=== PATIENT | female | born 1950 | race Caucasian/White ===

== ENCOUNTER → 2024-04-25 | Outpatient (CLI) | payer MEDICARE ==
--- NOTE | 2024-04-25 12:01 | XR ---
EXAMINATION TYPE: XR knee limited RT DATE OF EXAM: 04/25/2024 11:22 AM COMPARISON: None CLINICAL INDICATION: Female, 73 years old with history of M25.561 R knee pain; PHH, pain TECHNIQUE: XR knee limited RT 2 views submitted. FINDINGS: No evidence of any acute osseous pathology, soft tissue swelling, or joint effusion is no gustavo. Tricompartmental osteophyte formation involving the femoral condyles, tibial plateau and patella . Mild joint space narrowing. Atherosclerosis of the arterial vasculature. IMPRESSION: 1. No acute osseous pathology. 2. 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 [facility], , 04/25/2024 11:58 AM
== END | disposition home or self-care (01) ==
LOC: RADXRMAIN 10:55
PROVIDERS: ATTEND Internal Medicine Geriatric Medicine
DX: M17.11 Unilateral primary osteoarthritis, right knee (principal)

== ENCOUNTER 2024-07-16 09:21 | Inpatient (IN) | payer MEDICARE, OTHER ==
[2024-07-16] MEDS: IPRATROPIUM-ALBUTEROL 3 ML NEB INHALATION STA (09:34)
--- NOTE | 2024-07-16 09:34 | ED ---
General Adult HPI - General Chief complaint: Shortness of Breath Stated complaint: Flu A Time Seen by Provider: 07/16/24 09:21 Source: patient, EMS, RN notes reviewed, old records reviewed Mode of arrival: EMS Limitations: no limitations - History of Present Illness Initial comments: This is a 74-year-old female who comes from a [facility] complaining of difficulty breathing. According to EMS she was diagnosed with influenza approximately a week ago. Patient per EMS had a pulse ox in the 40s when they arrived and her blood pressure was low according to staff there. Patient also had occasional complaint of abdominal pain but she states currently she does not have any abdominal pain. Patient denies any fever and there is no history of any chest pain the patient denies chest pain. Patient has a past history of COPD and is a full code. - Related Data Home Medications Medication Instructions Recorded Confirmed Apixaban [Eliquis] 5 mg PO BID 06/25/24 06/26/24 Esomeprazole Magnesium [NexIUM] 40 mg PO DAILY 06/25/24 06/26/24 Fexofenadine HCl [Tali Allergy] 180 mg PO DAILY 06/25/24 06/26/24 Fluticasone/Umeclidin/Vilanter 1 puff INHALATION RT-DAILY 06/25/24 06/26/24 [Trelegy Ellipta 200-62.5-25] Hydroxychloroquine Sulfate 200 mg PO BID 06/25/24 06/26/24 Pregabalin [Lyrica] 100 mg PO TID 06/25/24 06/26/24 Albuterol Sulfate [Albuterol 2 puff INHALATION RT-QID PRN 06/26/24 06/26/24 Sulfate Hfa] Calcium Carbonate [Calcium] 600 mg PO BID 06/26/24 06/26/24 Montelukast [Singulair] 10 mg PO DAILY 06/26/24 06/26/24 Tirzepatide [Mounjaro] 12.5 mg SQ MO 06/26/24 06/26/24 Previous Rx's Medication Instructions Recorded Atorvastatin [Lipitor] 40 mg PO HS #30 tab 07/04/24 Bumetanide [BUMEX] 1 mg PO DAILY #30 tab 07/04/24 HYDROcodone/APAP 10-325MG [[place] 1 each PO Q6H PRN #28 tab 07/04/24 10] Hydrocortisone [Cortef] 10 mg PO DAILY@1600 #9 tab 07/04/24 Hydrocortisone [Cortef] 15 mg PO DAILY@0700 9 Days tab 07/04/24 Insulin Aspart [NovoLOG Flexpen] 1 - 10 units SQ AC-TID #5 pen 07/04/24 Insulin Degludec [Tresiba 20 units SQ HS #5 pen 07/04/24 Flextouch U-200 Pen] Metoprolol Succinate (ER) [Toprol 12.5 mg PO DAILY #30 tab 07/04/24 XL] Allergies Allergy/AdvReac Type Severity Reaction Status Date / Time ciprofloxacin Allergy Unknown Verified 06/30/24 14:30 codeine Allergy Rash/Hives Verified 06/30/24 14:30 folic acid Allergy Unknown Verified 06/30/24 14:30 metronidazole [From Flagyl] Allergy Swelling Verified 06/30/24 14:30 propoxyphene Allergy Unknown Verified 06/30/24 14:30 [From Darvocet-N 100] Sulfa (Sulfonamide Allergy Unknown Verified 06/30/24 14:30 Antibiotics) sulfamethoxazole Allergy Unknown Verified 06/30/24 14:30 [From Bactrim] terbinafine [From Lamisil] Allergy Unknown Verified 06/30/24 14:30 trimethoprim [From Bactrim] Allergy Unknown Verified 06/30/24 14:30 Review of Systems ROS Statement: Those systems with pertinent positive or pertinent negative responses have been documented in the HPI. ROS Other: All systems not noted in ROS Statement are negative. Past Medical History Past Medical History: Atrial Fibrillation, Cancer, COPD, Diabetes Mellitus, Hyperlipidemia, Hypertension Additional Past Medical History / Comment(s): PULMONARY FIBROSIS, SJOGREN'S SYNDROME, BREAST CANCER X2, CERVICAL CANCER, VAGINAL WALL CANCER, FACIAL CANCER History of Any Multi-Drug Resistant Organisms: None Reported Past Surgical History: Appendectomy, Breast Surgery, Cholecystectomy, Heart Catheterization, Hysterectomy Additional Past Surgical History / Comment(s): BREAST MASTECTOMY 2000 & 2008, EYE SURGERY 2004 Type of Cardiac Device: Permanent Pacemaker Device Placement Date:: February 2021 Past Psychological History: No Psychological Hx Reported Smoking Status: Never smoker Past Alcohol Use History: None Reported Past Drug Use History: None Reported - Past Family History Father Family Medical History: Cancer Additional Family Medical History / Comment(s): lung cancer Brother(s) Family Medical History: Cancer Additional Family Medical History / Comment(s): leukemia Mother Family Medical History: Coronary Artery Disease (CAD), CVA/TIA, Hypertension General Exam - General Exam Comments Initial Comments: GENERAL: Patient is well-developed and well-nourished. Patient is nontoxic and well- hydrated and is in moderate distress. ENT: Neck is soft and supple. No significant lymphadenopathy is noted. Oropharynx is clear. Moist mucous membranes. Neck has full range of motion without eliciting any pain. EYES: The sclera were anicteric and conjunctiva were pink and moist. Extraocular movements were intact and pupils were equal round and reactive to light. Eyelids were unremarkable. PULMONARY: Patient has crackles in the bases of her lungs CARDIOVASCULAR: There is a regular rate and rhythm without any murmurs gallops or rubs. ABDOMEN: Soft and nontender with normal bowel sounds. SKIN: Skin is clear with no lesions or rashes and otherwise unremarkable. NEUROLOGIC: Patient is alert and oriented x3. Cranial nerves II through XII are grossly intact. Motor and sensory are also intact. Normal speech, volume and content. Symmetrical smile. MUSCULOSKELETAL: Normal extremities with adequate strength and full range of motion. No lower extremity swelling or edema. No calf tenderness. LYMPHATICS: No significant lymphadenopathy is noted PSYCHIATRIC: Normal psychiatric evaluation. Limitations: no limitations Course Vital Signs 07/16/24 07/16/24 07/16/24 09:22 09:34 09:37 Temperature 98.5 F Pulse Rate 101 H 72 Respiratory 32 H 32 H Rate Blood Pressure 86/60 O2 Sat by Pulse 97 Oximetry Fraction of 50 Inspired Oxygen (FIO2) 07/16/24 07/16/24 07/16/24 09:41 09:44 10:00 Temperature Pulse Rate 73 71 Respiratory 24 Rate Blood Pressure 86/40 O2 Sat by Pulse 99 Oximetry Fraction of 50 70 Inspired Oxygen (FIO2) 07/16/24 07/16/24 07/16/24 10:17 10:54 11:22 Temperature Pulse Rate 70 66 72 Respiratory 28 H 26 H 30 H Rate Blood Pressure 90/39 83/38 98/61 O2 Sat by Pulse 96 97 96 Oximetry Fraction of Inspired Oxygen (FIO2) 07/16/24 07/16/24 12:07 12:11 Temperature Pulse Rate 67 Respiratory 26 H Rate Blood Pressure 83/11 O2 Sat by Pulse 95 Oximetry Fraction of 50 Inspired Oxygen (FIO2) Procedures - Central Line Placement Right Femoral Consent Obtained: verbal consent Patient Placed on Monitor/Pulse Ox: Yes MD Prep: mask, gown, gloves Central Line Prep: Chlorhexidine scrub Local Anesthesia Used: Lidocaine 1% Ultrasound Used for Placement: Yes Central Line Lumen Inserted: triple Bloods Obtained for Lab: No Central Line Position: good blood return, all ports aspirated, flushed, capped, sutured in place with nylon Dressing Applied: Tegaderm Patient Tolerated Procedure: well Complications: none - Sepsis Sepsis Focused Exam #1 Time Sepsis Criteria Met: 12:05 Sepsis Focused Exam Date: 07/16/24 Sepsis Focused Exam Time: 13:45 Sepsis Focused Exam Complete: Yes Vital Signs & RN Notes Reviewed: Yes Capillary Refill: < 2 Seconds: Fingers Peripheral Pulses: Weak: Radial (R) Skin Color: Normal for Patient Respiratory Exam: rales Cardiovascular Exam: regular rate Medical Decision Making - Medical Decision Making Patient's ideal body weight is 59 kg EKG is interpreted by myself EKG shows electronically paced rhythm at 74 bpm [place] 183 QRS is 188 QT is 499 QTc is 526. Was pt. sent in by a medical professional or institution ([facility], [facility], urgent care, hospital, or fci...) When possible be specific @ -No Did you speak to anyone other than the patient for history (EMS, parent, family, police, friend...)? What history was obtained from this source @ -No Did you review nursing and triage notes (agree or disagree)? Why? @ -I reviewed and agree with nursing and triage notes Were old charts reviewed (outside hosp., previous admission, EMS record, old EKG, old radiological studies, urgent care reports/EKG's, fci records)? Report findings @ -No old charts were reviewed Differential Diagnosis? @ -Differential Dyspnea: Coronary syndrome, arrhythmia, tamponade, asthma, COPD, pulmonary embolism, pneumonia, pneumothorax, pulmonary effusion, anaphylaxis, diabetic ketoacidosis, flailed chest, pulmonary contusion, diaphragmatic rupture, anemia, neuromuscular, this is not meant to be an all-inclusive list. EKG interpreted by me (3pts min.). @ -As above X-rays interpreted by me (1pt min.). @ -X-ray shows bilateral lateral pneumonia CT interpreted by me (1pt min.). @ -CAT scan shows no pulmonary embolism but is consistent with pneumonia U/S interpreted by me (1pt. min.). @ -None done What testing was considered but not performed or refused? (CT, X-rays, U/S, labs)? Why? @ -None What meds were considered but not given or refused? Why? @ -None Did you discuss the management of the patient with other professionals (pr ofessionals i.e. , PA, [facility], lab, RT, psych nurse, social work coordinator, green end department supervisor, teacher, benefits officer, nurse case manager)? Give summary @ -I spoke with Dr. Hernández he agreed to accept the patient to the ICU. I spoke with Dr. Pollock and she agreed to accept the admission Was smoking cessation discussed for >3mins.? @ -No Was critical care preformed (if so, how long)? @ -35 minutes Were there social determinants of health that impacted care today? How? (Homelessness, low income, unemployed, alcoholism, drug addiction, transportation, low edu. Level, literacy, decrease access to med. care, care home, rehab)? @ -No Was there de-escalation of care discussed even if they declined (Discuss DNR or withdrawal of care, Hospice)? DNR status @ -No What co-morbidities impacted this encounter? (DM, HTN, Smoking, COPD, CAD, Cancer, CVA, ARF, Chemo, Hep., AIDS, mental health diagnosis, sleep apnea, morbid obesity)? @ -None Was patient admitted / discharged? Hospital course, mention meds given and route, prescriptions, significant lab abnormalities, going to OR and other pertinent info. @ -Patient came in on BiPAP was much more alert according to EMS. Patient had an x-ray to look like pneumonia so I started the patient on Rocephin and later on vancomycin. Patient was given 2 and half liters of fluid and blood pressure remained low so patient had a central line placed by myself and I put the patient on Levophed. Patient had Zofran and Ativan because she was somewhat nauseous and anxious. Patient was eventually removed off of BiPAP and placed on 4 L nasal cannula. Undiagnosed new problem with uncertain prognosis? @ -No Drug Therapy requiring intensive monitoring for toxicity (Heparin, Nitro, Insulin, Cardizem)? @ -No Were any procedures done? @ -No Diagnosis/symptom? @ -Bilateral pneumonia Acute, or Chronic, or Acute on Chronic? @ -Acute Uncomplicated (without systemic symptoms) or Complicated (systemic symptoms)? @ -Complicate Side effects of treatment? @ -No Exacerbation, Progression, or Severe Exacerbation? @ -No Poses a threat to life or bodily function? How? (Chest pain, [place], [place], pneumonia, PE, COPD, DKA, ARF, appy, cholecystitis, CVA, Diverticulitis, Homicidal, Suicidal, threat to staff... and all critical care pts) @ -Yes this can lead to sepsis and endorgan dysfunction Diagnosis/symptom? @ -Sepsis Acute, or Chronic, or Acute on Chronic? @ -Acute Uncomplicated (without systemic symptoms) or Complicated (systemic symptoms)? @ -Complicated Side effects of treatment? @ -None Exacerbation, Progression, or Severe Exacerbation] @ -No Poses a threat to life or bodily function? @ -Yes this can lead to endorgan dysfunction Diagnosis/symptom? @ -Acute renal failure Acute, or Chronic, or Acute on Chronic? @ -Acute Uncomplicated (without systemic symptoms) or Complicated (systemic symptoms)? @ -Complicate Side effects of treatment? @ -None Exacerbation, Progression, or Severe Exacerbation] @ -No Poses a threat to life or bodily function? @ -Yes this can lead to electrolyte abnormalities and arrhythmias Diagnosis/symptom? @ -Shock liver Acute, or Chronic, or Acute on Chronic? @ -Acute Uncomplicated (without systemic symptoms) or Complicated (systemic symptoms)? @ -Complicated Side effects of treatment? @ -None Exacerbation, Progression, or Severe Exacerbation] @ -No Poses a threat to life or bodily function? @ -Yes this can lead to coagulopathies and bleeding. - Lab Data Result diagrams: 07/16/24 09:32 07/16/24 12:04 Lab Results 07/16/24 07/16/24 07/16/24 Range/Units 09:32 09:32 09:32 WBC 17.7 H (3.8-10.6) k/uL RBC 3.37 L (3.80-5.40) m/uL Hgb 8.6 L (11.4-16.0) gm/dL Hct 29.8 L (34.0-46.0) % MCV 88.3 (80.0-100.0) fL MCH 25.4 (25.0-35.0) pg MCHC 28.7 L (31.0-37.0) g/dL RDW 15.8 H (11.5-15.5) % Plt Count 280 (150-450) k/uL MPV 11.1 Neutrophils % 91 % Lymphocytes % 3 % Monocytes % 5 % Eosinophils % 0 % Basophils % 0 % Neutrophils # 16.1 H (1.3-7.7) k/uL Lymphocytes # 0.5 L (1.0-4.8) k/uL Monocytes # 0.9 (0-1.0) k/uL Eosinophils # 0.0 (0-0.7) k/uL Basophils # 0.0 (0-0.2) k/uL Hypochromasia Marked Poikilocytosis Slight PT 37.1 H (10.0-12.5) sec INR 3.8 H (<1.2) APTT 29.8 (22.0-30.0) sec VBG pH (7.31-7.41) VBG pCO2 (37-51) mmHg VBG HCO3 (24-28) mmol/L Sodium 136 L (137-145) mmol/L Potassium 6.1 H* (3.5-5.1) mmol/L Chloride 99 (98-107) mmol/L Carbon Dioxide 15 L (22-30) mmol/L Anion Gap 22 mmol/L BUN 91 H (7-17) mg/dL Creatinine 2.74 H (0.52-1.04) mg/dL Est GFR (CKD-EPI)AfAm 19 (>60 ml/min/1.73 sqM) Est GFR (CKD-EPI)NonAf 16 (>60 ml/min/1.73 sqM) Glucose 98 (74-99) mg/dL Lactic Ac Sepsis Rflx Plasma Lactic Acid Thomas (0.7-2.0) mmol/L Calcium 8.2 L (8.4-10.2) mg/dL Total Bilirubin 2.4 H (0.2-1.3) mg/dL AST 62580 H (14-36) U/L ALT 5148 H (4-34) U/L Alkaline Phosphatase 171 H (38-126) U/L Total Protein 5.6 L (6.3-8.2) g/dL Albumin 2.9 L (3.5-5.0) g/dL 07/16/24 07/16/24 07/16/24 Range/Units 09:32 09:35 11:08 WBC (3.8-10.6) k/uL RBC (3.80-5.40) m/uL Hgb (11.4-16.0) gm/dL Hct (34.0-46.0) % MCV (80.0-100.0) fL MCH (25.0-35.0) pg MCHC (31.0-37.0) g/dL RDW (11.5-15.5) % Plt Count (150-450) k/uL MPV Neutrophils % % Lymphocytes % % Monocytes % % Eosinophils % % Basophils % % Neutrophils # (1.3-7.7) k/uL Lymphocytes # (1.0-4.8) k/uL Monocytes # (0-1.0) k/uL Eosinophils # (0-0.7) k/uL Basophils # (0-0.2) k/uL Hypochromasia Poikilocytosis PT (10.0-12.5) sec INR (<1.2) APTT (22.0-30.0) sec VBG pH 7.35 (7.31-7.41) VBG pCO2 33 L (37-51) mmHg VBG HCO3 18 L (24-28) mmol/L Sodium (137-145) mmol/L Potassium (3.5-5.1) mmol/L Chloride (98-107) mmol/L Carbon Dioxide (22-30) mmol/L Anion Gap mmol/L BUN (7-17) mg/dL Creatinine (0.52-1.04) mg/dL Est GFR (CKD-EPI)AfAm (>60 ml/min/1.73 sqM) Est GFR (CKD-EPI)NonAf (>60 ml/min/1.73 sqM) Glucose (74-99) mg/dL Lactic Ac Sepsis Rflx Y Plasma Lactic Acid Thomas 8.2 H* (0.7-2.0) mmol/L Calcium (8.4-10.2) mg/dL Total Bilirubin (0.2-1.3) mg/dL AST (14-36) U/L ALT (4-34) U/L Alkaline Phosphatase (38-126) U/L Total Protein (6.3-8.2) g/dL Albumin (3.5-5.0) g/dL 07/16/24 Range/Units 12:04 WBC (3.8-10.6) k/uL RBC (3.80-5.40) m/uL Hgb (11.4-16.0) gm/dL Hct (34.0-46.0) % MCV (80.0-100.0) fL MCH (25.0-35.0) pg MCHC (31.0-37.0) g/dL RDW (11.5-15.5) % Plt Count (150-450) k/uL MPV Neutrophils % % Lymphocytes % % Monocytes % % Eosinophils % % Basophils % % Neutrophils # (1.3-7.7) k/uL Lymphocytes # (1.0-4.8) k/uL Monocytes # (0-1.0) k/uL Eosinophils # (0-0.7) k/uL Basophils # (0-0.2) k/uL Hypochromasia Poikilocytosis PT (10.0-12.5) sec INR (<1.2) APTT (22.0-30.0) sec VBG pH (7.31-7.41) VBG pCO2 (37-51) mmHg VBG HCO3 (24-28) mmol/L Sodium (137-145) mmol/L Potassium 5.7 H (3.5-5.1) mmol/L Chloride (98-107) mmol/L Carbon Dioxide (22-30) mmol/L Anion Gap mmol/L BUN (7-17) mg/dL Creatinine (0.52-1.04) mg/dL Est GFR (CKD-EPI)AfAm (>60 ml/min/1.73 sqM) Est GFR (CKD-EPI)NonAf (>60 ml/min/1.73 sqM) Glucose (74-99) mg/dL Lactic Ac Sepsis Rflx Plasma Lactic Acid Thomas (0.7-2.0) mmol/L Calcium (8.4-10.2) mg/dL Total Bilirubin (0.2-1.3) mg/dL AST (14-36) U/L ALT (4-34) U/L Alkaline Phosphatase (38-126) U/L Total Protein (6.3-8.2) g/dL Albumin (3.5-5.0) g/dL Disposition Clinical Impression: Bilateral pneumonia, Acute renal failure, Shock liver, Sepsis, Influenza Disposition: ADMITTED IP TO THIS HOSP Referrals: Mali Juárez MD [Primary Care Provider] - 1-2 days Time of Disposition: 13:46
[2024-07-16] MEDS: SODIUM CHLORIDE 0.9% 500 ML 500 ML IV SCH (09:56)
[2024-07-16] MEDS: methylPREDNISolone SOD SUCCI 125 MG/2 ML VIAL IV STA (09:56)
[2024-07-16 10:03] LABS: VBG PH 7.35 (7.31-7.41)
--- NOTE | 2024-07-16 10:08 | XR ---
EXAMINATION TYPE: XR chest 1V portable DATE OF EXAM: 07/16/2024 9:59 AM COMPARISON: Chest radiographs from 07/02/2024 TECHNIQUE: XR chest 1V portable Portable AP radiograph of the chest. CLINICAL INDICATION:Female, 74 years old with history of chf; FINDINGS: Lungs/Pleura: There is no evidence of pleural effusion or pneumothorax. Right midlung linear atelect asis. Left basilar subtle patchy airspace opacity. Chronic interstitial prominence. Heart/mediastinum: Cardiomediastinal silhouette is enlarged and stable. Atherosclerotic calcificatio ns are seen in the aorta. Two lead cardiac conduction device overlying the right hemithorax with lead tips projecting over the right ventricle and right atrium. Musculoskeletal: No acute osseous pathology. Other: Surgical clips overlie the left upper chest. IMPRESSION: 1. Right mid lung linear atelectasis with left basilar airspace opacities which may represent atelec tasis versus pneumonia. 2. Cardiomegaly without pulmonary vascular congestion or pleural effusion. [facility], , 07/16/2024 10:05 AM
[2024-07-16 10:10] LABS: Basophils % (A) 0 %; Eosinophils % (A) 0 %; HCT 29.8 % (34.0-46.0); HGB 8.6 gm/dL (11.4-16.0); Hypochromasia Marked; Lymphocytes # (A) 0.5 k/uL (1.0-4.8); Lymphocytes % (A) 3 %; MCH 25.4 pg (25.0-35.0); MCHC 28.7 g/dL (31.0-37.0); MCV 88.3 fL (80.0-100.0); Mean Platelet Volume 11.1; Monocytes # (A) 0.9 k/uL (0-1.0); Monocytes % (A) 5 %; Neutrophils # (A) 16.1 k/uL (1.3-7.7); Neutrophils % (A) 91 %; Platelet Count 280 k/uL (150-450); Poikilocytosis Slight; RBC 3.37 m/uL (3.80-5.40); RDW 15.8 % (11.5-15.5); WBC 17.7 k/uL (3.8-10.6)
[2024-07-16 10:13] LABS: INR 3.8 (<1.2); Partial Thromboplastin Time 29.8 sec (22.0-30.0); Prothrombin Time 37.1 sec (10.0-12.5)
[2024-07-16] MEDS: cefTRIAXone IN SWFI 1,000 MG/10 ML SYRINGE IVP STA (10:13)
[2024-07-16 11:18] LABS: Albumin 2.9 g/dL (3.5-5.0); Alkaline Phosphatase 171 U/L (38-126); Anion Gap 22 mmol/L; Blood Urea Nitrogen 91 mg/dL (7-17); Calcium 8.2 mg/dL (8.4-10.2); Carbon Dioxide 15 mmol/L (22-30); Chloride 99 mmol/L (98-107); Glucose 98 mg/dL (74-99); Sodium 136 mmol/L (137-145); Total Bilirubin 2.4 mg/dL (0.2-1.3); Total Protein 5.6 g/dL (6.3-8.2)
[2024-07-16 11:24] LABS: African American GFR (CKD) 19 (>60 ml/min/1.73 sqM); Non-African American GFR(CKD) 16 (>60 ml/min/1.73 sqM)
[2024-07-16 11:29] LABS: Potassium 6.1 mmol/L (3.5-5.1)
[2024-07-16] MEDS: SODIUM CHLORIDE 0.9% 500 ML 500 ML IV ONE ×3 (12:01→17:22)
[2024-07-16 12:07] LABS: ALT 5148 U/L (4-34)
--- NOTE | 2024-07-16 12:11 | CT ---
EXAMINATION TYPE: CT chest wo con CT DLP: 760 mGycm, Automated exposure control for dose reduction was used. DATE OF EXAM: 07/16/2024 12:02 PM COMPARISON: Chest radiograph from same day. CLINICAL INDICATION:Female, 74 years old with history of Dyspnea, hypotension, recent surgery; PHH, D yspnea, hypotension, recent sx. TECHNIQUE: Multiple axial images were obtained through the chest . Coronal and sagittal reformats rev iewed. FINDINGS: LUNGS/ PLEURA: Small bilateral pleural effusions. No pneumothorax. Patchy opacities identified within the bilateral upper lobes, right middle lobe, and bilateral lower lobes. AIRWAY: Patent and unremarkable.. HEART: The heart is moderately increased in size..Trace pericardial effusion. Cardiac pacemaker leads terminating in the right atrium and right ventricle. Mitral annulus calcifications. Aortic valvular calcifications. MEDIASTINUM: No gross evidence of adenopathy. VASCULATURE: No aortic aneurysm. Atherosclerotic calcification of the aorta and its branches. MUSCULOSKELETAL: No acute osseous abnormalities. Bilateral shoulder arthropathy. Scoliotic curvature of the visualized thoracolumbar spine. SOFT TISSUES/LYMPH NODES: Possible left mastectomy changes. Left lateral chest wall anasarca. LOWER NECK: Macrocalcification within the right thyroid lobe. UPPER ABDOMEN: Gallbladder is surgically absent. Right adrenal gland benign lipid rich adenoma measur ing 1.9 cm. Moderate-sized hiatal hernia. IMPRESSION: 1. Multifocal air space opacities consistent with pneumonia. 2. Small bilateral pleural effusions. [facility], , 07/16/2024 12:08 PM
[2024-07-16] MEDS ORDERED: VANCOMYCIN IV PER PHARMACY 1 EACH MISC MISCELLANE PRN (12:22)
[2024-07-16 12:30] LABS: AST 13601 U/L (14-36)
[2024-07-16] MEDS: NOREPINEPHRINE 32 MG in SODIUM CHLORIDE 0.9% 218 ML IV ONE (13:21)
[2024-07-16] MEDS: CALCIUM CHLORIDE 100 MG/ML 10 ML SYRINGE IVP STA (13:23)
[2024-07-16] MEDS: LORazepam 2 MG/ML INJ IV STA (13:31)
[2024-07-16] MEDS: ONDANSETRON 4 MG/2 ML VIAL IVP STA (13:31)
[2024-07-16] MEDS: SODIUM ZIRCONIUM CYCLOSILICATE 10 GM PACKET PO ONE (13:38)
[2024-07-16] MEDS: VANCOMYCIN 2,000 MG in SODIUM CHLORIDE 0.9% 500 ML 500 ML IVPB ONE (13:46)
[2024-07-16] MEDS ORDERED: NALOXONE 0.4 MG/ML 1 ML VIAL IV PRN (13:47)
--- NOTE | 2024-07-16 14:55 | P.CNPUL ---
History of Present Illness Consult date: 07/16/24 Requesting physician: Robb Lynne Reason for consult: other (Critical care management) Chief complaint: Hypotension, hypoxemia History of present illness: This is a 74-year-old female patient with a known history of morbid obesity, chronic anemia, hypertension, hyperlipidemia, diabetes mellitus, atrial fibrillation anticoagulated with Eliquis, aortic stenosis. He was recently discharged from here to a shelter facility after sustaining a hip fracture following a fall. She did undergo surgical repair. She was in the intensive care unit for hypotension for some time. Subsequently improved. She was brought back to the emergency room today after being found to be hypotensive and upon EMS arrival her pulse ox readings was in the 40s. The patient remains awake and alert and denied any pain. Chest x-ray reveals right midlung atelectasis and left basilar airspace opacities. Cardiomegaly. CT scan of the chest without contrast revealed multifocal airspace opacities consistent with pneumonia. Small bilateral pleural effusions. White count 17.7. Hemoglobin 8.6. Platelets 280. INR 3.8. Sodium 136. Potassium 5.7. Bicarb 15. BUN 91. Creatinine 2.74. Lactic acid 8.2. AST 13,600, ALT 5148. She is seen today in consultation in the emergency department. Currently sitting up in a stretcher. Awake and alert. Appears somewhat confused. She is currently requiring norepinephrine at 0.08 mcg/kg/min. She received 2-1/2 L of fluid resuscitation. She has been placed on vancomycin. She was initially on BiPAP 14/5 and 50% FiO2 but the patient was having nausea and concerns for vomiting. Maintaining O2 saturations low 90s on 4 L/min per nasal cannula. She is afebrile. Her daughter is at the bedside. She is to be a DNR CODE STATUS. Review of Systems REVIEW OF SYSTEMS: CONSTITUTIONAL: Denies any recent significant weight loss or weight gain. EYES: Denies change in vision. EARS, NOSE, MOUTH, THROAT: Denies headaches, denies sore throat. CARDIOVASCULAR: Denies chest pain, palpitations or syncopal episodes. RESPIRATORY: Positive for shortness of breath, cough, congestion no hemoptysis. GASTROINTESTINAL: Denies change in appetite, denies abdominal pain GENITOURINARY: Denies hematuria, denies infections. MUSKULOSKELETAL: Denies pain, denies swelling. INTEGUMENTARY: Denies rash, denies eczema. NEUROLOGICAL: Denies recent memory loss, no recent seizure activity. PSYCHIATRIC: Denies anxiety, denies depression. HEMATOLOGIC/LYMPHATIC: Denies anemia, denies enlarged lymph nodes. Past Medical History Past Medical History: Atrial Fibrillation, Cancer, COPD, Diabetes Mellitus, Hyperlipidemia, Hypertension Additional Past Medical History / Comment(s): PULMONARY FIBROSIS, SJOGREN'S SYNDROME, BREAST CANCER X2, CERVICAL CANCER, VAGINAL WALL CANCER, FACIAL CANCER History of Any Multi-Drug Resistant Organisms: None Reported Past Surgical History: Appendectomy, Breast Surgery, Cholecystectomy, Heart Catheterization, Hysterectomy Additional Past Surgical History / Comment(s): BREAST MASTECTOMY 2000 & 2008, EYE SURGERY 2004 Type of Cardiac Device: Permanent Pacemaker Device Placement Date:: February 2021 Past Psychological History: No Psychological Hx Reported Smoking Status: Never smoker Past Alcohol Use History: None Reported Past Drug Use History: None Reported - Past Family History Father Family Medical History: Cancer Additional Family Medical History / Comment(s): lung cancer Brother(s) Family Medical History: Cancer Additional Family Medical History / Comment(s): leukemia Mother Family Medical History: Coronary Artery Disease (CAD), CVA/TIA, Hypertension Medications and Allergies Home Medications Medication Instructions Recorded Confirmed Type Apixaban [Eliquis] 5 mg PO BID 06/25/24 06/26/24 History Esomeprazole Magnesium [NexIUM] 40 mg PO DAILY 06/25/24 06/26/24 History Fexofenadine HCl [Tali Allergy] 180 mg PO DAILY 06/25/24 06/26/24 History Fluticasone/Umeclidin/Vilanter 1 puff INHALATION RT-DAILY 06/25/24 06/26/24 History [Trelegy Ellipta 200-62.5-25] Hydroxychloroquine Sulfate 200 mg PO BID 06/25/24 06/26/24 History Pregabalin [Lyrica] 100 mg PO TID 06/25/24 06/26/24 History Albuterol Sulfate [Albuterol 2 puff INHALATION RT-QID PRN 06/26/24 06/26/24 History Sulfate Hfa] Calcium Carbonate [Calcium] 600 mg PO BID 06/26/24 06/26/24 History Montelukast [Singulair] 10 mg PO DAILY 06/26/24 06/26/24 History Tirzepatide [Mounjaro] 12.5 mg SQ MO 06/26/24 06/26/24 History Atorvastatin [Lipitor] 40 mg PO HS #30 tab 07/04/24 Rx Bumetanide [BUMEX] 1 mg PO DAILY #30 tab 07/04/24 Rx HYDROcodone/APAP 10-325MG [[place] 1 each PO Q6H PRN #28 tab 07/04/24 Rx 10] Hydrocortisone [Cortef] 10 mg PO DAILY@1600 #9 tab 07/04/24 Rx Hydrocortisone [Cortef] 15 mg PO DAILY@0700 9 Days tab 07/04/24 Rx Insulin Aspart [NovoLOG Flexpen] 1 - 10 units SQ AC-TID #5 pen 07/04/24 06/26/24 Rx Insulin Degludec [Tresiba 20 units SQ HS #5 pen 07/04/24 06/26/24 Rx Flextouch U-200 Pen] Metoprolol Succinate (ER) [Toprol 12.5 mg PO DAILY #30 tab 07/04/24 Rx XL] Allergies Allergy/AdvReac Type Severity Reaction Status Date / Time ciprofloxacin Allergy Unknown Verified 07/16/24 14:32 codeine Allergy Rash/Hives Verified 07/16/24 14:32 folic acid Allergy Unknown Verified 07/16/24 14:32 metronidazole [From Flagyl] Allergy Swelling Verified 07/16/24 14:32 propoxyphene Allergy Unknown Verified 07/16/24 14:32 [From Darvocet-N 100] Sulfa (Sulfonamide Allergy Unknown Verified 07/16/24 14:32 Antibiotics) sulfamethoxazole Allergy Unknown Verified 07/16/24 14:32 [From Bactrim] terbinafine [From Lamisil] Allergy Unknown Verified 07/16/24 14:32 trimethoprim [From Bactrim] Allergy Unknown Verified 07/16/24 14:32 Physical Exam Vitals: Vital Signs Temp Pulse Resp BP Pulse Ox FiO2 07/16/24 13:47 80 16 135/53 92 L 07/16/24 13:38 78 20 135/56 94 L 07/16/24 12:11 67 26 H 83/11 95 07/16/24 12:07 50 07/16/24 11:22 72 30 H 98/61 96 07/16/24 10:54 66 26 H 83/38 97 07/16/24 10:17 70 28 H 90/39 96 07/16/24 10:00 71 24 86/40 99 07/16/24 09:44 73 70 07/16/24 09:41 50 07/16/24 09:37 32 H 07/16/24 09:34 72 07/16/24 09:22 98.5 F 101 H 32 H 86/60 97 50 Intake and Output 07/15/24 07/16/24 07/16/24 22:59 06:59 14:59 Intake Total 5.671 Balance 5.671 Intake: Intake, IV Titration 5.671 Amount Norepinephrine 32 mg In 5.671 Sodium Chloride 0.9% 218 ml @ 0.03 MCG/KG/MIN 2. 009 mls/hr IV .Q24H ONE Rx#:[id number] Other: Weight 142.882 kg GENERAL EXAM: Alert, anxious, obese 74-year-old female, on 4 L nasal cannula, fairly comfortable in no apparent distress. HEAD: Normocephalic. EYES: Normal reaction of pupils, equal size. NOSE: Clear with pink turbinates. THROAT: No erythema or exudates. NECK: No masses, no JVD. CHEST: No chest wall deformity. LUNGS: Equal air entry with bilateral scattered rhonchi. CVS: S1 and S2 normal with no audible murmur, regular rhythm. ABDOMEN: No hepatosplenomegaly, normal bowel sounds, no guarding or rigidity. SPINE: No scoliosis or deformity SKIN: No rashes CENTRAL NERVOUS SYSTEM: No focal deficits, tone is normal in all 4 extremities. EXTREMITIES: There is no peripheral edema. No clubbing, no cyanosis. Peripheral pulses are intact. Results - Laboratory Findings CBC and BMP: 07/16/24 09:32 07/16/24 12:04 PT/INR, D-dimer PT 37.1 sec (10.0-12.5) H 07/16/24 09:32 INR 3.8 (<1.2) H 07/16/24 09:32 Abnormal lab findings: Abnormal Labs 07/16/24 07/16/24 07/16/24 09:32 09:32 09:32 WBC 17.7 H RBC 3.37 L Hgb 8.6 L Hct 29.8 L MCHC 28.7 L RDW 15.8 H Neutrophils # 16.1 H Lymphocytes # 0.5 L PT 37.1 H INR 3.8 H VBG pCO2 VBG HCO3 Sodium 136 L Potassium 6.1 H* Carbon Dioxide 15 L BUN 91 H Creatinine 2.74 H Plasma Lactic Acid Thomas Calcium 8.2 L Total Bilirubin 2.4 H AST 23905 H ALT 5148 H Alkaline Phosphatase 171 H Total Protein 5.6 L Albumin 2.9 L 07/16/24 07/16/24 07/16/24 09:32 09:35 12:04 WBC RBC Hgb Hct MCHC RDW Neutrophils # Lymphocytes # PT INR VBG pCO2 33 L VBG HCO3 18 L Sodium Potassium 5.7 H Carbon Dioxide BUN Creatinine Plasma Lactic Acid Thomas 8.2 H* Calcium Total Bilirubin AST ALT Alkaline Phosphatase Total Protein Albumin - Diagnostic Findings Chest x-ray: image reviewed CT scan - chest: image reviewed Assessment and Plan Assessment: Acute hypoxemic respiratory failure secondary to an acute healthcare acquired pneumonia Hypotension with sepsis requiring pressor support Lactic acidosis secondary to above Acute kidney injury Hyperkalemia secondary to above Transaminitis Coagulopathy secondary to above, INR 3.8 Acute leukocytosis Acute on chronic anemia History of atrial fibrillation, anticoagulated with Eliquis Sent discharge following left hip fracture repair subsequent hypotension requiring ICU stay Cardiomyopathy with an ejection fraction of 15 to 20% Aortic stenosis Diabetes mellitus Morbid obesity with a BMI of 51 kg/m History of hypertension Hyperlipidemia Plan: The patient was seen and evaluated Imaging, labs and medications reviewed Received 2 L of fluid resuscitation Initiated on vancomycin Receiving norepinephrine for pressure support Currently on 4 L nasal cannula BiPAP 14/5 and 50% as needed Cepheid 4 Plex ordered Blood cultures pending Overall prognosis is guarded DNR CODE STATUS per daughter at the bedside Admit to the intensive care unit for close monitoring We will continue to follow and make further recommendations based on her clinical status I have personally seen and examined the patient, performed the documentation and the assessment and plan as written. Number of minutes spent on the visit: 20 Dictation was produced using [employer] dictation software. Please excuse any grammatical, word or spelling errors.
[2024-07-16 15:16] LABS: Glucose,Whole Blood 126 mg/dL (70-110)
--- NOTE | 2024-07-16 15:45 | P.HPIM ---
History of Present Illness H&P Date: 07/16/24 Chief Complaint: Shortness of breath 74-year-old female who comes from [facility] complaining of difficulty breathing. According to EMS she was diagnosed with influenza approximately a week ago. Patient per EMS had a pulse ox in the 40s when they arrived and her blood pressure was low according to staff there. Patient also had occasional complaint of abdominal pain but she states currently she does not have any abdominal pain. Patient denies any fever and there is no history of any chest pain the patient denies chest pain. Patient has a past history of COPD and is a full code. Chest x-ray reveals right midlung atelectasis and left basilar airspace opacities. Cardiomegaly. CT scan of the chest without contrast revealed multifocal airspace opacities consistent with pneumonia. Small bilateral pleural effusions. White count 17.7. Hemoglobin 8.6. Platelets 280. INR 3.8. Sodium 136. Potassium 5.7. Bicarb 15. BUN 91. Creatinine 2.74. Lactic acid 8.2. AST 13,600, ALT 5148. --Patient was seen and evaluated in ED with daughter at bedside -Patient is being admitted to ICU for pneumonia, sepsis, shock liver and respiratory failure Review of Systems ROS unobtainable: due to mental status Past Medical History Past Medical History: Atrial Fibrillation, Cancer, COPD, Diabetes Mellitus, Hyperlipidemia, Hypertension Additional Past Medical History / Comment(s): PULMONARY FIBROSIS, SJOGREN'S SYNDROME, BREAST CANCER X2, CERVICAL CANCER, VAGINAL WALL CANCER, FACIAL CANCER History of Any Multi-Drug Resistant Organisms: None Reported Past Surgical History: Appendectomy, Breast Surgery, Cholecystectomy, Heart Catheterization, Hysterectomy Additional Past Surgical History / Comment(s): BREAST MASTECTOMY 2000 & 2008, EYE SURGERY 2004 Type of Cardiac Device: Permanent Pacemaker Device Placement Date:: February 2021 Past Psychological History: No Psychological Hx Reported Smoking Status: Never smoker Past Alcohol Use History: None Reported Past Drug Use History: None Reported - Past Family History Father Family Medical History: Cancer Additional Family Medical History / Comment(s): lung cancer Brother(s) Family Medical History: Cancer Additional Family Medical History / Comment(s): leukemia Mother Family Medical History: Coronary Artery Disease (CAD), CVA/TIA, Hypertension Medications and Allergies Home Medications Medication Instructions Recorded Confirmed Type Apixaban [Eliquis] 5 mg PO BID 06/25/24 07/16/24 History Fluticasone/Umeclidin/Vilanter 1 puff INHALATION RT-DAILY 06/25/24 07/16/24 History [Trelegy Ellipta 200-62.5-25] Hydroxychloroquine Sulfate 200 mg PO BID 06/25/24 07/16/24 History Pregabalin [Lyrica] 100 mg PO TID 06/25/24 07/16/24 History Albuterol Sulfate [Albuterol 2 puff INHALATION RT-QID PRN 06/26/24 07/16/24 History Sulfate Hfa] Calcium Carbonate [Calcium] 600 mg PO BID 06/26/24 07/16/24 History Montelukast [Singulair] 10 mg PO HS 06/26/24 07/16/24 History Tirzepatide [Mounjaro] 12.5 mg SQ MO 06/26/24 07/16/24 History Atorvastatin [Lipitor] 40 mg PO HS #30 tab 07/04/24 07/16/24 Rx Bumetanide [BUMEX] 1 mg PO DAILY #30 tab 07/04/24 07/16/24 Rx Insulin Degludec [Tresiba 20 units SQ HS #5 pen 07/04/24 07/16/24 Rx Flextouch U-200 Pen] Metoprolol Succinate (ER) [Toprol 12.5 mg PO DAILY #30 tab 07/04/24 07/16/24 Rx XL] Budesonide [Pulmicort] 1 mg INHALATION RT-BID 07/16/24 07/16/24 History Cetirizine HCl [Zyrtec] 10 mg PO HS 07/16/24 07/16/24 History Furosemide [Lasix] 40 mg PO DAILY 07/16/24 07/16/24 History HYDROcodone/APAP 10-325MG [[place] 1 tab PO Q4H PRN 07/16/24 07/16/24 History 10] Insulin Lispro [Admelog] See Protocol SQ AC-TID 07/16/24 07/16/24 History Ipratropium-Albuterol Nebulize 3 ml INHALATION RT-Q6H PRN 07/16/24 07/16/24 History [Duoneb 0.5 mg-3 mg/3 ml Soln] Omeprazole [PriLOSEC] 20 mg PO DAILY 07/16/24 07/16/24 History Triamcinolone Acetonide [Nasacort] 1 spray EA NOSTRIL Q12H 07/16/24 07/16/24 History predniSONE 50 mg PO DAILY 07/16/24 07/16/24 History Allergies Allergy/AdvReac Type Severity Reaction Status Date / Time ciprofloxacin Allergy Unknown Verified 07/16/24 14:32 codeine Allergy Rash/Hives Verified 07/16/24 14:32 folic acid Allergy Unknown Verified 07/16/24 14:32 metronidazole [From Flagyl] Allergy Swelling Verified 07/16/24 14:32 propoxyphene Allergy Unknown Verified 07/16/24 14:32 [From Darvocet-N 100] Sulfa (Sulfonamide Allergy Unknown Verified 07/16/24 14:32 Antibiotics) sulfamethoxazole Allergy Unknown Verified 07/16/24 14:32 [From Bactrim] terbinafine [From Lamisil] Allergy Unknown Verified 07/16/24 14:32 trimethoprim [From Bactrim] Allergy Unknown Verified 07/16/24 14:32 Physical Exam Vitals: Vital Signs Temp Pulse Resp BP Pulse Ox FiO2 07/16/24 14:59 74 20 107/71 93 L 07/16/24 14:30 95 07/16/24 14:00 81 20 115/72 93 L 07/16/24 13:47 80 16 135/53 92 L 07/16/24 13:38 78 20 135/56 94 L 07/16/24 12:11 67 26 H 83/11 95 07/16/24 12:07 50 07/16/24 11:22 72 30 H 98/61 96 07/16/24 10:54 66 26 H 83/38 97 07/16/24 10:17 70 28 H 90/39 96 07/16/24 10:00 71 24 86/40 99 07/16/24 09:44 73 70 07/16/24 09:41 50 07/16/24 09:37 32 H 07/16/24 09:34 72 07/16/24 09:22 98.5 F 101 H 32 H 86/60 97 50 Intake and Output 07/16/24 07/16/24 07/16/24 06:59 14:59 22:59 Intake Total 5.671 Balance 5.671 Intake: Intake, IV Titration 5.671 Amount Norepinephrine 32 mg In 5.671 Sodium Chloride 0.9% 218 ml @ 0.03 MCG/KG/MIN 2. 009 mls/hr IV .Q24H ONE Rx#:[id number] Other: Weight 142.882 kg GENERAL EXAM: Alert, anxious, obese 74-year-old female, on 4 L nasal cannula, fairly comfortable in no apparent distress. HEENT: Normocephalic. Normal reaction of pupils, equal size. THROAT: No erythema or exudates. NECK: No masses, no JVD. CHEST: No chest wall deformity. LUNGS: Equal air entry with bilateral scattered rhonchi. CVS: S1 and S2 normal with no audible murmur, regular rhythm. ABDOMEN: No hepatosplenomegaly, normal bowel sounds, no guarding or rigidity. SKIN: No rashes CENTRAL NERVOUS SYSTEM: No focal deficits, tone is normal in all 4 extremities. EXTREMITIES: There is no peripheral edema. No clubbing, no cyanosis. Peripheral pulses are intact. Results CBC & Chem 7: 07/16/24 09:32 07/16/24 12:04 Labs: Abnormal Lab Results - Last 24 Hours (Table) 07/16/24 07/16/24 07/16/24 Range/Units 09:32 09:32 09:32 WBC 17.7 H (3.8-10.6) k/uL RBC 3.37 L (3.80-5.40) m/uL Hgb 8.6 L (11.4-16.0) gm/dL Hct 29.8 L (34.0-46.0) % MCHC 28.7 L (31.0-37.0) g/dL RDW 15.8 H (11.5-15.5) % Neutrophils # 16.1 H (1.3-7.7) k/uL Lymphocytes # 0.5 L (1.0-4.8) k/uL PT 37.1 H (10.0-12.5) sec INR 3.8 H (<1.2) VBG pCO2 (37-51) mmHg VBG HCO3 (24-28) mmol/L Sodium 136 L (137-145) mmol/L Potassium 6.1 H* (3.5-5.1) mmol/L Carbon Dioxide 15 L (22-30) mmol/L BUN 91 H (7-17) mg/dL Creatinine 2.74 H (0.52-1.04) mg/dL POC Glucose (mg/dL) (70-110) mg/dL Plasma Lactic Acid Thomas (0.7-2.0) mmol/L Calcium 8.2 L (8.4-10.2) mg/dL Total Bilirubin 2.4 H (0.2-1.3) mg/dL AST 15051 H (14-36) U/L ALT 5148 H (4-34) U/L Alkaline Phosphatase 171 H (38-126) U/L Total Protein 5.6 L (6.3-8.2) g/dL Albumin 2.9 L (3.5-5.0) g/dL 07/16/24 07/16/24 07/16/24 Range/Units 09:32 09:35 12:04 WBC (3.8-10.6) k/uL RBC (3.80-5.40) m/uL Hgb (11.4-16.0) gm/dL Hct (34.0-46.0) % MCHC (31.0-37.0) g/dL RDW (11.5-15.5) % Neutrophils # (1.3-7.7) k/uL Lymphocytes # (1.0-4.8) k/uL PT (10.0-12.5) sec INR (<1.2) VBG pCO2 33 L (37-51) mmHg VBG HCO3 18 L (24-28) mmol/L Sodium (137-145) mmol/L Potassium 5.7 H (3.5-5.1) mmol/L Carbon Dioxide (22-30) mmol/L BUN (7-17) mg/dL Creatinine (0.52-1.04) mg/dL POC Glucose (mg/dL) (70-110) mg/dL Plasma Lactic Acid Thomas 8.2 H* (0.7-2.0) mmol/L Calcium (8.4-10.2) mg/dL Total Bilirubin (0.2-1.3) mg/dL AST (14-36) U/L ALT (4-34) U/L Alkaline Phosphatase (38-126) U/L Total Protein (6.3-8.2) g/dL Albumin (3.5-5.0) g/dL 07/16/24 Range/Units 15:14 WBC (3.8-10.6) k/uL RBC (3.80-5.40) m/uL Hgb (11.4-16.0) gm/dL Hct (34.0-46.0) % MCHC (31.0-37.0) g/dL RDW (11.5-15.5) % Neutrophils # (1.3-7.7) k/uL Lymphocytes # (1.0-4.8) k/uL PT (10.0-12.5) sec INR (<1.2) VBG pCO2 (37-51) mmHg VBG HCO3 (24-28) mmol/L Sodium (137-145) mmol/L Potassium (3.5-5.1) mmol/L Carbon Dioxide (22-30) mmol/L BUN (7-17) mg/dL Creatinine (0.52-1.04) mg/dL POC Glucose (mg/dL) 126 H (70-110) mg/dL Plasma Lactic Acid Thomas (0.7-2.0) mmol/L Calcium (8.4-10.2) mg/dL Total Bilirubin (0.2-1.3) mg/dL AST (14-36) U/L ALT (4-34) U/L Alkaline Phosphatase (38-126) U/L Total Protein (6.3-8.2) g/dL Albumin (3.5-5.0) g/dL Assessment and Plan Assessment: 1. Healthcare associated pneumonia -Patient has been placed on IV cefepime 1 g every 12 hours along with IV vancomycin with pharmacy dosing service -Bronchodilator nebulizer treatments -Pulmonary service on board; patient recommendations 2. Acute hypoxic respiratory failure -Patient was initially placed on BiPAP; currently on O2 at 4 L per nasal cannula; patient has been evaluated by pulmonary service and is recommended Bi PAP 14/5 and FiO2 50% as needed 3. Sepsis; as indicated by hypotension, respiratory failure and lactic acidosis; POA -Patient was given IV fluid resuscitation with 2 L in ED; currently on IV norepinephrine for pressure support -Patient has been pancultured and is placed on broad-spectrum antibiotics 4. Acute renal injury/hyperkalemia; BUNs/creatinine elevated at 91/2.74 -Patient received 2 L of IV fluid in ED; continue with IV fluid hydration; monitor strict RALPH's, daily weights, renal function electrolytes avoid nephrotoxins and hypotension -Potassium level at 6.1 at time of admission; repeat potassium is 5.7 after fluid resuscitation; will monitor electrolytes closely 5. Shock liver; transaminitis with coagulopathy with INR of 3.8 -AST/ALT elevated at 13,601/5148 -We will monitor liver enzymes closely 6. Lactic acidosis; related to sepsis; lactic acid improving after IV fluid b olus; continue to trend lactic acid; currently down to 5.7 7. Acute on chronic anemia; hemoglobin at 8.6; monitor H&H closely 8. Recent left hip fracture repair; patient was admitted to ICU postoperatively for hypotension 9. History of diabetes mellitus; monitor Accu-Cheks q. ACH S with insulin sliding scale 10. History of atrial fibrillation; patient is anticoagulated on Eliquis 5 mg twice daily 11. Hyperlipidemia; Lipitor 40 mg p.o. nightly DVT prophylaxis; SCDs only given coagulopathy CODE STATUS; full code
[2024-07-16] MEDS ORDERED: CEFEPIME 2 GM in SODIUM CHLORIDE 0.9% 100 ML IVPB SCH (16:00)
[2024-07-16] MEDS: CEFEPIME 1 GM in SODIUM CHLORIDE 0.9% 50 ML IVPB SCH (16:12)
[2024-07-16] MEDS: SODIUM CHLORIDE 0.9% 1,000 ML IV SCH (16:13)
[2024-07-16 16:21] LABS: Influenza A Not Detected (Not Detectd); Influenza B Not Detected (Not Detectd); RSV Not Detected (Not Detectd)
[2024-07-16] MEDS: SODIUM CHLORIDE 0.9% 1,000 ML IV ONE (17:15)
[2024-07-16] MEDS: INSULIN LISPRO (HumaLOG) 100 UNIT/ML 10 mL VL SQ SCH (17:57)
[2024-07-16] MEDS: DEXMEDETOMIDINE/0.9% NACL(PMX) 400 MCG in EMPTY BAG 1 BAG IV SCH (19:06)
[2024-07-16] MEDS: SODIUM BICARB 8.4% 50 ML SYR (1 MEQ/ML) IV STA (19:33)
--- NOTE | 2024-07-16 22:24 | P.CONS ---
History of Present Illness - Reason for Consult Consult date: 07/16/24 Pneumonia bilaterally Requesting physician: Nate Murguia - Chief Complaint Shortness of breath x 1 day - History of Present Illness Patient is a 74-year-old female with a past medical history significant for diabetes mellitus hypertension hyperlipidemia COPD atrial fibrillation in long term resident and recently diagnosed with influenza , patient has been brought into the hospital after the patient was complaining of increasing shortness of breath patient was noted to be hypoxic with O2 sats in the 40s when the EMS arrived and the patient was subsequently brought into the hospital patient been complaining of shortness of breath denies chest pain she did have a cough moderate intensity but not bring up any purulent sputum patient did have some nausea but no vomiting no abdominal pain no diarrhea on presentation to the hospital patient was afebrile no fever has been recorded subsequently patient was tachycardic hypotensive on presentation to the hospital, as well as hypoxic requiring admission to the ICU patient received a dose of Rocephin in the ER subsequently has been started on vancomycin admit to the ICU infectious disease was consulted for further management of antibiotic therapy patient did have a white count of 17.7 with a left shift BUN and creatinine is elevated as well as elevated lactic acid and elevated liver enzymes patient did have a chest x-ray right midlung linear atelectasis with left basilar airspace opacity may represent atelectasis versus pneumonia CT confirmed this finding Review of Systems Positive point and negatives has been mentioned in the HPI, complete review of systems was performed and all other systems are negative Past Medical History Past Medical History: Atrial Fibrillation, Cancer, COPD, Diabetes Mellitus, Hyperlipidemia, Hypertension Additional Past Medical History / Comment(s): PULMONARY FIBROSIS, SJOGREN'S SYNDROME, BREAST CANCER X2, CERVICAL CANCER, VAGINAL WALL CANCER, FACIAL CANCER History of Any Multi-Drug Resistant Organisms: None Reported Past Surgical History: Appendectomy, Breast Surgery, Cholecystectomy, Heart Catheterization, Hysterectomy Additional Past Surgical History / Comment(s): BREAST MASTECTOMY 2000 & 2008, EYE SURGERY 2004 Type of Cardiac Device: Permanent Pacemaker Device Placement Date:: February 2021 Past Psychological History: No Psychological Hx Reported Smoking Status: Never smoker Past Alcohol Use History: None Reported Past Drug Use History: None Reported - Past Family History Father Family Medical History: Cancer Additional Family Medical History / Comment(s): lung cancer Brother(s) Family Medical History: Cancer Additional Family Medical History / Comment(s): leukemia Mother Family Medical History: Coronary Artery Disease (CAD), CVA/TIA, Hypertension Medications and Allergies Home Medications Medication Instructions Recorded Confirmed Type Apixaban [Eliquis] 5 mg PO BID 06/25/24 07/16/24 History Fluticasone/Umeclidin/Vilanter 1 puff INHALATION RT-DAILY 06/25/24 07/16/24 History [Trelegy Ellipta 200-62.5-25] Hydroxychloroquine Sulfate 200 mg PO BID 06/25/24 07/16/24 History Pregabalin [Lyrica] 100 mg PO TID 06/25/24 07/16/24 History Albuterol Sulfate [Albuterol 2 puff INHALATION RT-QID PRN 06/26/24 07/16/24 History Sulfate Hfa] Calcium Carbonate [Calcium] 600 mg PO BID 06/26/24 07/16/24 History Montelukast [Singulair] 10 mg PO HS 06/26/24 07/16/24 History Tirzepatide [Mounjaro] 12.5 mg SQ MO 06/26/24 07/16/24 History Atorvastatin [Lipitor] 40 mg PO HS #30 tab 07/04/24 07/16/24 Rx Bumetanide [BUMEX] 1 mg PO DAILY #30 tab 07/04/24 07/16/24 Rx Insulin Degludec [Tresiba 20 units SQ HS #5 pen 07/04/24 07/16/24 Rx Flextouch U-200 Pen] Metoprolol Succinate (ER) [Toprol 12.5 mg PO DAILY #30 tab 07/04/24 07/16/24 Rx XL] Budesonide [Pulmicort] 1 mg INHALATION RT-BID 07/16/24 07/16/24 History Cetirizine HCl [Zyrtec] 10 mg PO HS 07/16/24 07/16/24 History Furosemide [Lasix] 40 mg PO DAILY 07/16/24 07/16/24 History HYDROcodone/APAP 10-325MG [[place] 1 tab PO Q4H PRN 07/16/24 07/16/24 History 10] Insulin Lispro [Admelog] See Protocol SQ AC-TID 07/16/24 07/16/24 History Ipratropium-Albuterol Nebulize 3 ml INHALATION RT-Q6H PRN 07/16/24 07/16/24 History [Duoneb 0.5 mg-3 mg/3 ml Soln] Omeprazole [PriLOSEC] 20 mg PO DAILY 07/16/24 07/16/24 History Triamcinolone Acetonide [Nasacort] 1 spray EA NOSTRIL Q12H 07/16/24 07/16/24 History predniSONE 50 mg PO DAILY 07/16/24 07/16/24 History Allergies Allergy/AdvReac Type Severity Reaction Status Date / Time ciprofloxacin Allergy Unknown Verified 07/16/24 14:32 codeine Allergy Rash/Hives Verified 07/16/24 14:32 folic acid Allergy Unknown Verified 07/16/24 14:32 metronidazole [From Flagyl] Allergy Swelling Verified 07/16/24 14:32 propoxyphene Allergy Unknown Verified 07/16/24 14:32 [From Darvocet-N 100] Sulfa (Sulfonamide Allergy Unknown Verified 07/16/24 14:32 Antibiotics) sulfamethoxazole Allergy Unknown Verified 07/16/24 14:32 [From Bactrim] terbinafine [From Lamisil] Allergy Unknown Verified 07/16/24 14:32 trimethoprim [From Bactrim] Allergy Unknown Verified 07/16/24 14:32 Physical Exam Vitals: Vital Signs Temp Pulse Resp BP Pulse Ox FiO2 07/16/24 13:47 80 16 135/53 92 L 07/16/24 13:38 78 20 135/56 94 L 07/16/24 12:11 67 26 H 83/11 95 07/16/24 12:07 50 07/16/24 11:22 72 30 H 98/61 96 07/16/24 10:54 66 26 H 83/38 97 07/16/24 10:17 70 28 H 90/39 96 07/16/24 10:00 71 24 86/40 99 07/16/24 09:44 73 70 07/16/24 09:41 50 07/16/24 09:37 32 H 07/16/24 09:34 72 07/16/24 09:22 98.5 F 101 H 32 H 86/60 97 50 Intake and Output 07/15/24 07/16/24 07/16/24 22:59 06:59 14:59 Intake Total 2.601 Balance 2.601 Intake: Intake, IV Titration 2.601 Amount Norepinephrine 32 mg In 2.601 Sodium Chloride 0.9% 218 ml @ 0.03 MCG/KG/MIN 2. 009 mls/hr IV .Q24H [facility] Rx#:[id number] Other: Weight 142.882 kg GENERAL DESCRIPTION: Elderly female lying in bed, no distress. No tachypnea or accessory muscle of respiration use. HEENT: Shows Pallor , no scleral icterus. Oral mucous membrane is dry. NECK: Trachea central, no thyromegaly. LUNGS: Unlabored breathing. Coarse breath sounds bilaterally HEART: S1, S2, regular rate and rhythm. No loud murmur ABDOMEN: Soft, no tenderness , guarding or rigidity, no organomegaly EXTREMITIES: No edema of feet. SKIN: No rash, no masses palpable. NEUROLOGICAL: The patient is awake, mood and affect normal. Results CBC & Chem 7: 07/17/24 10:11 07/17/24 11:47 Labs: Abnormal Lab Results - Last 24 Hours (Table) 07/16/24 07/16/24 07/16/24 Range/Units 09:32 09:32 09:32 WBC 17.7 H (3.8-10.6) k/uL RBC 3.37 L (3.80-5.40) m/uL Hgb 8.6 L (11.4-16.0) gm/dL Hct 29.8 L (34.0-46.0) % MCHC 28.7 L (31.0-37.0) g/dL RDW 15.8 H (11.5-15.5) % Neutrophils # 16.1 H (1.3-7.7) k/uL Lymphocytes # 0.5 L (1.0-4.8) k/uL PT 37.1 H (10.0-12.5) sec INR 3.8 H (<1.2) VBG pCO2 (37-51) mmHg VBG HCO3 (24-28) mmol/L Sodium 136 L (137-145) mmol/L Potassium 6.1 H* (3.5-5.1) mmol/L Carbon Dioxide 15 L (22-30) mmol/L BUN 91 H (7-17) mg/dL Creatinine 2.74 H (0.52-1.04) mg/dL Plasma Lactic Acid Thomas (0.7-2.0) mmol/L Calcium 8.2 L (8.4-10.2) mg/dL Total Bilirubin 2.4 H (0.2-1.3) mg/dL AST 28079 H (14-36) U/L ALT 5148 H (4-34) U/L Alkaline Phosphatase 171 H (38-126) U/L Total Protein 5.6 L (6.3-8.2) g/dL Albumin 2.9 L (3.5-5.0) g/dL 07/16/24 07/16/24 07/16/24 Range/Units 09:32 09:35 12:04 WBC (3.8-10.6) k/uL RBC (3.80-5.40) m/uL Hgb (11.4-16.0) gm/dL Hct (34.0-46.0) % MCHC (31.0-37.0) g/dL RDW (11.5-15.5) % Neutrophils # (1.3-7.7) k/uL Lymphocytes # (1.0-4.8) k/uL PT (10.0-12.5) sec INR (<1.2) VBG pCO2 33 L (37-51) mmHg VBG HCO3 18 L (24-28) mmol/L Sodium (137-145) mmol/L Potassium 5.7 H (3.5-5.1) mmol/L Carbon Dioxide (22-30) mmol/L BUN (7-17) mg/dL Creatinine (0.52-1.04) mg/dL Plasma Lactic Acid Thomas 8.2 H* (0.7-2.0) mmol/L Calcium (8.4-10.2) mg/dL Total Bilirubin (0.2-1.3) mg/dL AST (14-36) U/L ALT (4-34) U/L Alkaline Phosphatase (38-126) U/L Total Protein (6.3-8.2) g/dL Albumin (3.5-5.0) g/dL Assessment and Plan (1) Allergy to multiple antibiotics Current Visit: Yes Status: Acute Code(s): Z88.1 - ALLERGY STATUS TO OTHER ANTIBIOTIC AGENTS SNOMED Code(s): 808102746 (2) Bilateral pneumonia Current Visit: Yes Status: Acute Code(s): J18.9 - PNEUMONIA, UNSPECIFIED ORGANISM SNOMED Code(s): 433810135 (3) Sepsis Current Visit: Yes Status: Acute Code(s): A41.9 - SEPSIS, UNSPECIFIED ORGANISM SNOMED Code(s): 91363702 Plan: 1patient presented to hospital with sepsis in this patient who did have hypotension tachycardia elevated white count meeting criteria for SIRS source likely pneumonia in this patient who recently did have influenza A and long term resident will need eval for resistant gram-positive as well as gram- negative pathogen. 2patient with elevated creatinine high risk of nephrotoxicity from vancomycin 3-try to obtain sputum for Gram stain culture 4-discontinue vancomycin 5-start the patient on cefepime and Zyvox while awaiting further workup to be completed Daughter at the bedside question concern answered We will follow on clinical condition and cultures to further adjust medication if needed Thank you for this consultation we will follow the patient along with you Dictation was produced using [employer] dictation software. please excuse any grammatical, word or spelling errors. Time with Patient: Greater than 30
[2024-07-16 23:03] LABS: Glucose,Whole Blood 59 mg/dL (70-110)
[2024-07-16] MEDS: DEXTROSE 50% SYRINGE 50 ML IVP PRN (23:04)
[2024-07-16 23:58] LABS: Glucose,Whole Blood 108 mg/dL (70-110)
[2024-07-17 05:56] LABS: Glucose,Whole Blood 64 mg/dL (70-110)
[2024-07-17 06:21] LABS: Glucose,Whole Blood 74 mg/dL (70-110)
[2024-07-17 06:51] LABS: Glucose,Whole Blood 72 mg/dL (70-110)
--- NOTE | 2024-07-17 07:17 | XR ---
EXAMINATION TYPE: XR chest 1V portable DATE OF EXAM: 07/17/2024 5:24 AM COMPARISON: 07/16/2024 CLINICAL INDICATION: Female, 74 years old with history of multifocal pneumonia, TECHNIQUE: XR chest 1V portable views of the chest are obtained. FINDINGS: Demonstrated are scattered senescent parenchymal change. Increasing infiltrate throughout the right lung compatible with pneumonia. The left lung remains stab le. The heart is stable. Hilar and mediastinal structures are within normal limits. Degenerative changes are seen of the dorsal spine. IMPRESSION: 1. Increasing infiltrate throughout the right lung compatible with pneumonia. The left lung remains stable. [facility], , 07/17/2024 7:15 AM
[2024-07-17] MEDS: VASOPRESSIN 60 UNIT in SODIUM CHLORIDE 0.9% 150 ML IV SCH (07:27)
[2024-07-17 08:35] LABS: Glucose,Whole Blood 56 mg/dL (70-110)
[2024-07-17] MEDS: DEXTROSE 50% SYRINGE 50 ML IVP PRN (08:50)
[2024-07-17] MEDS: LINEZOLID 600 MG in DEXTROSE/WATER 1 300ML.BAG IVPB SCH (09:15)
[2024-07-17] MEDS: PANTOPRAZOLE 40 MG/10 ML VIAL IVP SCH (09:15)
[2024-07-17 09:20] LABS: Glucose,Whole Blood 91 mg/dL (70-110)
[2024-07-17] MEDS ORDERED: HYDROmorphone 0.5 MG/0.5 ML SYRINGE IVP PRN (09:53)
[2024-07-17] MEDS ORDERED: LORazepam 2 MG/ML INJ IV PRN (09:54)
[2024-07-17] MEDS ORDERED: ALBUTEROL NEBULIZED 2.5 MG/3 ML INHALATION PRN (10:02)
[2024-07-17 11:58] LABS: Glucose,Whole Blood 138 mg/dL (70-110)
[2024-07-17] MEDS ORDERED: VANCOMYCIN 2,000 MG in SODIUM CHLORIDE 0.9% 500 ML 500 ML IVPB ONE (12:00)
[2024-07-17 12:14] LABS: HCT 29.7 % (34.0-46.0); HGB 7.6 gm/dL (11.4-16.0); Hypochromasia Marked; MCH 25.6 pg (25.0-35.0); MCHC 25.6 g/dL (31.0-37.0); Macrocytosis Slight; Mean Platelet Volume 11.2; Platelet Count 242 k/uL (150-450); Poikilocytosis Slight; RBC 2.97 m/uL (3.80-5.40); RDW 15.3 % (11.5-15.5); WBC 19.8 k/uL (3.8-10.6)
[2024-07-17 12:16] LABS: MCV 100.1 fL (80.0-100.0)
--- NOTE | 2024-07-17 12:17 | P.PN ---
Subjective Progress Note Date: 07/17/24 This is a 74-year-old female patient with a known history of morbid obesity, chronic anemia, hypertension, hyperlipidemia, diabetes mellitus, atrial fibrillation anticoagulated with Eliquis, aortic stenosis. He was recently discharged from here to a shelter facility after sustaining a hip fracture following a fall. She did undergo surgical repair. She was in the intensive care unit for hypotension for some time. Subsequently improved. She was brought back to the emergency room today after being found to be hypotensive and upon EMS arrival her pulse ox readings was in the 40s. The patient remains awake and alert and denied any pain. Chest x-ray reveals right midlung atelectasis and left basilar airspace opacities. Cardiomegaly. CT scan of the chest without contrast revealed multifocal airspace opacities consistent with pneumonia. Small bilateral pleural effusions. White count 17.7. Hemoglobin 8.6. Platelets 280. INR 3.8. Sodium 136. Potassium 5.7. Bicarb 15. BUN 91. Creatinine 2.74. Lactic acid 8.2. AST 13,600, ALT 5148. She is seen today in consultation in the emergency department. Currently sitting up in a stretcher. Awake and alert. Appears somewhat confused. She is currently requiring norepinephrine at 0.08 mcg/kg/min. She received 2-1/2 L of fluid resuscitation. She has been placed on vancomycin. She was initially on BiPAP 14/5 and 50% FiO2 but the patient was having nausea and concerns for vomiting. Maintaining O2 saturations low 90s on 4 L/min per nasal cannula. She is afebrile. Her daughter is at the bedside. She is to be a DNR CODE STATUS. The patient is seen today July 17, 2024 in follow-up in the intensive care unit. She is currently resting in bed. She is requiring BiPAP support 14/5 and 70% FiO2 to maintain O2 saturations in the low 90s. She is requiring Precedex at 0.2 mcg/kg/min for restlessness throughout the night. She was pulling her BiPAP off. She has also been hypotensive and requiring norepinephrine at 25 mcg/min. She has normal saline at 75 mL/h. She is continued on ceftriaxone and Zyvox. Blood cultures are positive for gram-negative bacilli. Glucose 138. Chest x- ray showing increasing infiltrate throughout the right lung compatible with pneumonia. Left lung is stable. Objective - Vital Signs Vital signs: Vital Signs Temp 97.9 F 07/17/24 08:00 Pulse 80 07/17/24 11:30 Resp 17 07/17/24 11:30 BP 93/76 07/17/24 11:30 Pulse Ox 96 07/17/24 11:15 FiO2 70 07/17/24 11:52 Intake & Output 07/16/24 07/17/24 07/17/24 18:59 06:59 18:59 Intake Total 059.299 4905.086 450.369 Output Total 425 35 10 Balance 317.826 5189.086 440.369 Weight 142.882 kg 126 kg Intake: IV 225 900 375 Sodium Chloride 0.9% 1, 225 900 375 000 ml @ 75 mls/hr IV . [id number] [facility] Rx#:[id number] Intake, IV Titration 583.802 192.086 75.369 Amount Cefepime 1 gm In Sodium 50 Chloride 0.9% 50 ml @ 12. 5 mls/hr IVPB Q12H [facility] Rx #:[id number] Dexmedetomidine/0.9% NaCl 150.618 75.369 (Pmx) 400 mcg In Empty Bag 1 bag @ 0.2 MCG/KG/HR 7.144 mls/hr IV .Q14H [facility] Rx#:[id number] Norepinephrine 32 mg In 33.802 41.468 Sodium Chloride 0.9% 218 ml @ 0.03 MCG/KG/MIN 2. 009 mls/hr IV .Q24H [facility] Rx#:[id number] Sodium Chloride 0.9% 500 500 ml 500 ml @ 999 mls/hr IV .Q31M [facility] Rx#:[id number] Output: Urine 425 35 10 Other: Voiding Method Indwelling Catheter Indwelling Catheter Indwelling Catheter - Exam GENERAL EXAM: Sedated, obese 74-year-old female, on BiPAP 14/5 and 70% FiO2, fairly comfortable. HEAD: Normocephalic. EYES: Normal reaction of pupils, equal size. NOSE: Clear with pink turbinates. THROAT: No erythema or exudates. NECK: No masses, no JVD. CHEST: No chest wall deformity. LUNGS: Equal air entry with bilateral scattered rhonchi. CVS: S1 and S2 normal with no audible murmur, regular rhythm. ABDOMEN: No hepatosplenomegaly, normal bowel sounds, no guarding or rigidity. SPINE: No scoliosis or deformity SKIN: No rashes CENTRAL NERVOUS SYSTEM: No focal deficits, tone is normal in all 4 extremities. EXTREMITIES: There is 1+ peripheral edema. No clubbing, no cyanosis. Peripheral pulses are intact. - Labs CBC & Chem 7: 07/16/24 09:32 07/16/24 12:04 Labs: Abnormal Lab Results - Last 24 Hours (Table) 07/16/24 07/16/24 07/16/24 Range/Units 09:32 12:04 15:14 Potassium 5.7 H (3.5-5.1) mmol/L POC Glucose (mg/dL) 126 H (70-110) mg/dL Plasma Lactic Acid Thomas (0.7-2.0) mmol/L AST 80168 H (14-36) U/L ALT 5148 H (4-34) U/L 07/16/24 07/16/24 07/17/24 Range/Units 18:10 23:01 05:55 Potassium (3.5-5.1) mmol/L POC Glucose (mg/dL) 59 L 64 L (70-110) mg/dL Plasma Lactic Acid Thomas 8.4 H* (0.7-2.0) mmol/L AST (14-36) U/L ALT (4-34) U/L 07/17/24 07/17/24 Range/Units 08:33 11:56 Potassium (3.5-5.1) mmol/L POC Glucose (mg/dL) 56 L 138 H (70-110) mg/dL Plasma Lactic Acid Thomas (0.7-2.0) mmol/L AST (14-36) U/L ALT (4-34) U/L Microbiology - Last 24 Hours (Table) 07/16/24 09:32 Blood Culture Gram Stain - Preliminary Blood Blood Culture - Preliminary Molecular ID Assessment and Plan Assessment: Acute hypoxemic respiratory failure secondary to an acute healthcare acquired pneumonia Hypotension with sepsis requiring pressor support Bacteremia secondary to gram-negative bacilli Lactic acidosis secondary to above Acute kidney injury Hyperkalemia secondary to above Transaminitis Coagulopathy secondary to above, INR 3.8 Acute leukocytosis Acute on chronic anemia History of atrial fibrillation, anticoagulated with Eliquis Sent discharge following left hip fracture repair subsequent hypotension requiring ICU stay Cardiomyopathy with an ejection fraction of 15 to 20% Aortic stenosis Diabetes mellitus Morbid obesity with a BMI of 51 kg/m History of hypertension Hyperlipidemia Plan: The patient was seen and evaluated Chest x-ray and medications reviewed Currently on BiPAP 14/ and 70% FiO2 Required Precedex for sedation Receiving norepinephrine for pressure support Blood cultures positive for gram negative bacilli Remains on ceftriaxone and Zyvox Overall prognosis is poor DNR CODE STATUS May need to consider hospice/comfort care I have personally seen and examined the patient, performed the documentation and the assessment and plan as written. Number of minutes spent on the visit: 10 Dictation was produced using [employer] mobility dictation software. Please excuse any grammatical, word or spelling errors.
[2024-07-17] MEDS ORDERED: NOREPINEPHRINE 32 MG in SODIUM CHLORIDE 0.9% 218 ML IV SCH (12:30)
[2024-07-17 12:44] LABS: Anion Gap 25 mmol/L; Blood Urea Nitrogen 82 mg/dL (7-17); Chloride 104 mmol/L (98-107); Glucose 120 mg/dL (74-99); Sodium 136 mmol/L (137-145)
[2024-07-17 12:50] LABS: African American GFR (CKD) 12 (>60 ml/min/1.73 sqM); Non-African American GFR(CKD) 11 (>60 ml/min/1.73 sqM)
[2024-07-17 12:51] VITALS: TEMP 97.5
[2024-07-17 13:07] LABS: Potassium 7.9 mmol/L (3.5-5.1)
[2024-07-17 13:08] LABS: Carbon Dioxide 7 mmol/L (22-30)
[2024-07-17 13:09] LABS: Calcium 6.3 mg/dL (8.4-10.2)
[2024-07-17 13:20] VITALS: BP 75/35; PULSE 60; RESP 19
[2024-07-17] MEDS ORDERED: MORPHINE SULFATE 2 MG/ML SYRINGE IV PRN (13:26)
--- NOTE | 2024-07-17 13:43 | P.PN ---
Subjective Progress Note Date: 07/17/24 Principal diagnosis: Please for follow-up with sepsis and bacteremia Patient is a 74-year-old female with a past medical history significant for diabetes mellitus hypertension hyperlipidemia COPD atrial fibrillation in intermediate resident and recently diagnosed with influenza patient has been brought to the hospital with worsening respiratory distress and hypoxemia concerning for pneumonia blood cultures coming positive with E. coli. On today's evaluation that is 07/17/2024, patient has been afebrile, patient is currently on a BiPAP and is requiring pressor support patient is lethargic cannot provide any history no vomiting or diarrhea has been reported. Patient white count is 19.8 creatinine 3.90 lactic acid 17.6 blood culture with an E. coli Objective - Vital Signs Vital signs: Vital Signs Temp 97.9 F 07/17/24 08:00 Pulse 80 07/17/24 11:30 Resp 17 07/17/24 11:30 BP 93/76 07/17/24 11:30 Pulse Ox 96 07/17/24 11:15 FiO2 70 07/17/24 11:52 Intake & Output 07/16/24 07/17/24 07/17/24 18:59 06:59 18:59 Intake Total 662.269 6998.086 580.970 Output Total 425 35 10 Balance 260.393 9048.086 570.970 Weight 142.882 kg 126 kg Intake: IV 225 900 375 Sodium Chloride 0.9% 1, 225 900 375 000 ml @ 75 mls/hr IV . [id number] [facility] Rx#:[id number] Intake, IV Titration 583.802 192.086 205.970 Amount Cefepime 1 gm In Sodium 50 Chloride 0.9% 50 ml @ 12. 5 mls/hr IVPB Q12H [facility] Rx #:[id number] Dexmedetomidine/0.9% NaCl 150.618 75.369 (Pmx) 400 mcg In Empty Bag 1 bag @ 0.2 MCG/KG/HR 7.144 mls/hr IV .Q14H [facility] Rx#:[id number] Norepinephrine 32 mg In 33.802 41.468 130.601 Sodium Chloride 0.9% 218 ml @ 0.03 MCG/KG/MIN 2. 009 mls/hr IV .Q24H [facility] Rx#:[id number] Sodium Chloride 0.9% 500 500 ml 500 ml @ 999 mls/hr IV .Q31M [facility] Rx#:[id number] Output: Urine 425 35 10 Other: Voiding Method Indwelling Catheter Indwelling Catheter Indwelling Catheter - Exam GENERAL DESCRIPTION: An elderly female on the BiPAP RESPIRATORY SYSTEM: Unlabored breathing , decreased breath sounds at bases HEART: S1 S2 regular rate and rhythm , ABDOMEN: Soft , no tenderness EXTREMITIES: No edema feet - Labs CBC & Chem 7: 07/17/24 10:11 07/17/24 11:47 Labs: Abnormal Lab Results - Last 24 Hours (Table) 07/16/24 07/16/24 07/16/24 Range/Units 09:32 12:04 15:14 WBC (3.8-10.6) k/uL RBC (3.80-5.40) m/uL Hgb (11.4-16.0) gm/dL Hct (34.0-46.0) % MCV (80.0-100.0) fL MCHC (31.0-37.0) g/dL Potassium 5.7 H (3.5-5.1) mmol/L POC Glucose (mg/dL) 126 H (70-110) mg/dL Plasma Lactic Acid Thomas (0.7-2.0) mmol/L AST 77794 H (14-36) U/L ALT 5148 H (4-34) U/L 07/16/24 07/16/24 07/17/24 Range/Units 18:10 23:01 05:55 WBC (3.8-10.6) k/uL RBC (3.80-5.40) m/uL Hgb (11.4-16.0) gm/dL Hct (34.0-46.0) % MCV (80.0-100.0) fL MCHC (31.0-37.0) g/dL Potassium (3.5-5.1) mmol/L POC Glucose (mg/dL) 59 L 64 L (70-110) mg/dL Plasma Lactic Acid Thomas 8.4 H* (0.7-2.0) mmol/L AST (14-36) U/L ALT (4-34) U/L 07/17/24 07/17/24 07/17/24 Range/Units 08:33 10:11 11:56 WBC 19.8 H (3.8-10.6) k/uL RBC 2.97 L (3.80-5.40) m/uL Hgb 7.6 L (11.4-16.0) gm/dL Hct 29.7 L (34.0-46.0) % MCV 100.1 H D (80.0-100.0) fL MCHC 25.6 L (31.0-37.0) g/dL Potassium (3.5-5.1) mmol/L POC Glucose (mg/dL) 56 L 138 H (70-110) mg/dL Plasma Lactic Acid Thomas (0.7-2.0) mmol/L AST (14-36) U/L ALT (4-34) U/L Microbiology - Last 24 Hours (Table) 07/16/24 09:32 Blood Culture Gram Stain - Preliminary Blood Blood Culture - Preliminary Molecular ID Assessment and Plan (1) Allergy to multiple antibiotics Current Visit: Yes Status: Acute Code(s): Z88.1 - ALLERGY STATUS TO OTHER ANTIBIOTIC AGENTS SNOMED Code(s): 455894329 (2) Bilateral pneumonia Current Visit: Yes Status: Acute Code(s): J18.9 - PNEUMONIA, UNSPECIFIED ORGANISM SNOMED Code(s): 893210199 (3) Sepsis Current Visit: Yes Status: Acute Code(s): A41.9 - SEPSIS, UNSPECIFIED ORGANISM SNOMED Code(s): 37660701 Plan: 1patient presented to hospital with sepsis in this patient who did have hypotension tachycardia elevated white count meeting criteria for SIRS source likely pneumonia in this patient who recently did have influenza A and intermediate resident will need eval for resistant gram-positive as well as gram- negative pathogen. 2patient with elevated creatinine high risk of nephrotoxicity from vancomycin 3-patient did have a positive blood culture with E. coli usually GI follow-up immediately source abdominal soft on clinical examination antibiotic has been yesterday Rocephin 2 g daily while waiting for the workup to be completed prognosis remains to be guarded Dictation was produced using [employer] software. please excuse any grammatical, word or spelling errors. Time with Patient: Less than 30
[2024-07-17 13:48] LABS: Prothrombin Time 69.2 sec (10.0-12.5)
[2024-07-17] MEDS: MORPHINE SULFATE 100 MG in SODIUM CHLORIDE 0.9% 90 ML IV SCH (14:03)
[2024-07-17] MEDS: MORPHINE SULFATE 4 MG/ML SYRINGE IV PRN (14:03)
[2024-07-17] MEDS ORDERED: BUDESONIDE 1 MG/2 ML NEBU INHALATION SCH (20:00)
[2024-07-18] MEDS ORDERED: NON FORMULARY DRUG (Fluticasone/Umeclidin/Vilanter [Trelegy Ellipta 200-62.5-25] 1 EACH Bl INHALATION SCH (08:00)
--- NOTE | 2024-07-20 18:51 | P.DS ---
Providers Date of admission: 07/16/24 13:47 Attending physician: Robb Lynne MD Consults: 07/16/24 13:47 Consult Physician Stat Consulting Provider: Ronna Hernández Consult Reason/Comments: Critical care management Do you want consulting provider notified?: Yes Primary care physician: Mali Juárez Hospital Course: Final Diagnosis Healthcare associated pneumonia and sepsis present on admission with sputum cultures showing Acute influenza A infection Acute hypoxemic respiratory failure secondary to above requiring BiPAP E. coli bacteremia Coagulopathy/Supratherapeutic INR of 7.0 Septic shock and shock liver Acute renal injury from ATN and sepsis Hyperkalemia from the DAISY Lactic acidosis from sepsis Acute on chronic anemia Recent left hip fracture surgical repair History of COPD Diabetes Mellitus type 2 Atrial fibrillation anticoagulated with eliquis as outpatient Hyperlipidemia Cardiomyopathy EF of 15 to 20% history of aortic stenosis Patient in the intensive care unit July 17, 2024 at 1423 preliminary cause of healthcare acquired pneumonia and septic shock Hospital Course 74-year-old female with a past medical history significant for diabetes mellitus hypertension hyperlipidemia COPD atrial fibrillation who comes from a half-way complaining of difficulty breathing. Was recently in the hospital for left hip fracture and surgical repair and requiring ICU monitoring then for hypotension. According to EMS she was diagnosed with influenza approximately a week ago. Patient per EMS had a pulse ox in the 40s when they arrived and her blood pressure was low according to staff there. Patient has had a cough without sputum production. Here she was found to be hypontensive and tachycardic. Chest x-ray reveals right midlung atelectasis and left basilar airspace opacities. Cardiomegaly. CT scan of the chest without contrast revealed multifocal airspace opacities consistent with pneumonia. Small bilateral pleural effusions. White count 17.7. Hemoglobin 8.6. Platelets 280. INR 3.8. Sodium 136. Potassium 5.7. Bicarb 15. BUN 91. Creatinine 2.74. Lactic acid 8.2. AST 13,600, ALT 5148. Patient is being admitted to ICU for pneumonia, sepsis, shock liver and respiratory failure. patient was started empirically on rocephin and vancomycin however due to risk of nephrotoxicity from vancomycin ID had changed antibiotics to Zyvox and Cefepime. Follow-up chest x-ray reveals increasing infiltrate throughout the right lung compatible with pneumonia. Her repeat blood work comes back for white blood cell count 19.8 hemoglobin 7.6 INR of 7.0. Sodium level of 136 potassium of 7.9 CO2 of 7 anion gap 25 BUN of 82 creatinine of 3.90, lactic acid up to 17.6 calcium is dropping to 6.3. At this point family has decided on comfort care for this patient. She in the ICU. Please see medication reconciliation for a list of current medications. Thank you for allowing us to participate in the care of this patient. The impression and plan of care has been dictated by Lluvia Rodriguez, Nurse Practitioner as directed. Dr. Caterina MD I have performed a history and physical examination and medical decision making of this patient, discussed the same with the dictator, and agree with the dictators assessment and plan as written, documented as a scribe. Based on total visit time, I have performed more than 50% of this visit. Plan - Discharge Summary Discharge Rx Participant: Yes New Discharge Prescriptions: No Action Hydroxychloroquine Sulfate 200 mg PO BID Pregabalin [Lyrica] 100 mg PO TID Fluticasone/Umeclidin/Vilanter [Trelegy Ellipta 200-62.5-25] 1 puff INHALATION RT-DAILY Calcium Carbonate [Calcium] 600 mg PO BID Albuterol Sulfate [Albuterol Sulfate Hfa] 2 puff INHALATION RT-QID PRN PRN Reason: Shortness Of Breath Montelukast [Singulair] 10 mg PO HS Metoprolol Succinate (ER) [Toprol XL] 12.5 mg PO DAILY #30 tab Insulin Degludec [Tresiba Flextouch U-200 Pen] 20 units SQ HS #5 pen predniSONE 50 mg PO DAILY Omeprazole [PriLOSEC] 20 mg PO DAILY Ipratropium-Albuterol Nebulize [Duoneb 0.5 mg-3 mg/3 ml Soln] 3 ml INHALATION RT-Q6H PRN PRN Reason: Shortness Of Breath Insulin Lispro [Admelog] See Protocol SQ AC-TID Cetirizine HCl [Zyrtec] 10 mg PO HS Triamcinolone Acetonide [Nasacort] 1 spray EA NOSTRIL Q12H Apixaban [Eliquis] 5 mg PO BID Tirzepatide [Mounjaro] 12.5 mg SQ MO Bumetanide [BUMEX] 1 mg PO DAILY #30 tab Atorvastatin [Lipitor] 40 mg PO HS #30 tab Furosemide [Lasix] 40 mg PO DAILY HYDROcodone/APAP 10-325MG [[place] 10] 1 tab PO Q4H PRN PRN Reason: Pain Budesonide [Pulmicort] 1 mg INHALATION RT-BID Discharge Medication List Apixaban [Eliquis] 5 mg PO BID 06/25/24 [History] Fluticasone/Umeclidin/Vilanter [Trelegy Ellipta 200-62.5-25] 1 puff INHALATION RT-DAILY 06/25/24 [History] Hydroxychloroquine Sulfate 200 mg PO BID 06/25/24 [History] Pregabalin [Lyrica] 100 mg PO TID 06/25/24 [History] Albuterol Sulfate [Albuterol Sulfate Hfa] 2 puff INHALATION RT-QID PRN 06/26/24 [History] Calcium Carbonate [Calcium] 600 mg PO BID 06/26/24 [History] Montelukast [Singulair] 10 mg PO HS 06/26/24 [History] Tirzepatide [Mounjaro] 12.5 mg SQ MO 06/26/24 [History] Atorvastatin [Lipitor] 40 mg PO HS #30 tab 07/04/24 [Rx] Bumetanide [BUMEX] 1 mg PO DAILY #30 tab 07/04/24 [Rx] Insulin Degludec [Tresiba Flextouch U-200 Pen] 20 units SQ HS #5 pen 07/04/24 [Rx] Metoprolol Succinate (ER) [Toprol XL] 12.5 mg PO DAILY #30 tab 07/04/24 [Rx] Budesonide [Pulmicort] 1 mg INHALATION RT-BID 07/16/24 [History] Cetirizine HCl [Zyrtec] 10 mg PO HS 07/16/24 [History] Furosemide [Lasix] 40 mg PO DAILY 07/16/24 [History] HYDROcodone/APAP 10-325MG [[place] 10] 1 tab PO Q4H PRN 07/16/24 [History] Insulin Lispro [Admelog] See Protocol SQ AC-TID 07/16/24 [History] Ipratropium-Albuterol Nebulize [Duoneb 0.5 mg-3 mg/3 ml Soln] 3 ml INHALATION RT-Q6H PRN 07/16/24 [History] Omeprazole [PriLOSEC] 20 mg PO DAILY 07/16/24 [History] Triamcinolone Acetonide [Nasacort] 1 spray EA NOSTRIL Q12H 07/16/24 [History] predniSONE 50 mg PO DAILY 07/16/24 [History] Follow up Appointment(s)/Referral(s): Mali Juárez MD [Primary Care Provider] - 1-2 days Discharge Disposition: - Preliminary Cause of Preliminary Cause of : Healthcare acquired pneumonia and septic shock
== END 2024-07-17 17:52 | disposition expired | DRG 871 ==
LOC: EC 09:21 → SUPCPDRO 09:21 → 2SICU 13:47
PROVIDERS: ADMIT Internal Medicine; ATTEND Internal Medicine
PROC: 5A09357 Assistance with Respiratory Ventilation, Less than 24 Consecutive Hours, Continuous Positive Airway Pressure (ICD-10-PCS; principal; 2024-07-16)
PROC: 02HV33Z Insertion of Infusion Device into Superior Vena Cava, Percutaneous Approach (ICD-10-PCS; principal; 2024-07-16)
PROC: 3E043XZ Introduction of Vasopressor into Central Vein, Percutaneous Approach (ICD-10-PCS; principal; 2024-07-16)
DX: A41.51 Sepsis due to Escherichia coli [E. coli] (principal); J10.08 Influenza due to other identified influenza virus with other specified pneumonia; J15.9 Unspecified bacterial pneumonia; K72.00 Acute and subacute hepatic failure without coma; R65.21 Severe sepsis with septic shock; N17.0 Acute kidney failure with tubular necrosis; J96.01 Acute respiratory failure with hypoxia; I42.9 Cardiomyopathy, unspecified; D68.9 Coagulation defect, unspecified; J44.0 Chronic obstructive pulmonary disease with (acute) lower respiratory infection; E11.9 Type 2 diabetes mellitus without complications; E66.01 Morbid (severe) obesity due to excess calories; D64.9 Anemia, unspecified; M35.00 Sjogren syndrome, unspecified; I10 Essential (primary) hypertension; I35.0 Nonrheumatic aortic (valve) stenosis; Z68.43 Body mass index [BMI] 50.0-59.9, adult; Z66 Do not resuscitate; Z51.5 Encounter for palliative care; E87.20 Acidosis, unspecified; J84.10 Pulmonary fibrosis, unspecified; Y95 Nosocomial condition; I48.91 Unspecified atrial fibrillation; Z79.4 Long term (current) use of insulin; E87.5 Hyperkalemia; R74.01 Elevation of levels of liver transaminase levels; E78.5 Hyperlipidemia, unspecified; Z88.1 Allergy status to other antibiotic agents; Z88.5 Allergy status to narcotic agent; Z88.8 Allergy status to other drugs, medicaments and biological substances; Z88.6 Allergy status to analgesic agent; Z90.10 Acquired absence of unspecified breast and nipple; S72.002D Fracture of unspecified part of neck of left femur, subsequent encounter for closed fracture with routine healing; Z85.41 Personal history of malignant neoplasm of cervix uteri; Z85.3 Personal history of malignant neoplasm of breast; Z79.899 Other long term (current) drug therapy; Z79.01 Long term (current) use of anticoagulants; Z95.0 Presence of cardiac pacemaker
CPT/HCPCS: 36415; 36556; 51702; 71045; 71250; 80048; 80053; 82803; 83036; 83605; 84132; 85025; 85027; 85610; 85730; 87040; 87070; 87636; 93005; 94640; 94660; 96361; 96365; 96366; 96368; 96375; 99291